=== PATIENT | female | born 1960 | race African-American/Black ===

== ENCOUNTER 2019-11-08 13:12 | Emergency (ER) | payer MEDICARE, MEDICAID ==
[~2019-11-08] VITALS: Ht 124.5 cm; Wt 56.0 kg
[~2019-11-08 13:12] MED LIST: ALL DAY10 MG PO; AMOXICILLIN500 MG PO; ASPIRIN LOW DOS81 M2 PO; BACTRIM DS1 TAB PO; BACTROBAN21 EX; CEPHALEXIN500 M1 PO; CIPRODEX1 ML OT; DICLOFENAC SODI75 MG PO; DOXYCYC MONO100 M1 PO; DOXYCYC MONO100 M2 PO; FLEXERIL5 MG PO; GLIPIZIDE10 MG PO; GLUCOTROL10 MG PO; LISINOPRIL10 MG PO; LOMOTIL2.5 MG PO; LORTAB 5-325 MG1 TAB PO; LORTAB 7.5-3251 TAB PO; LORTAB 7.57.5 MG PO; MEDDOSEPAK PO; METFORMIN1000 MG PO; MOTRIN400 MG PO; NAPROSYN500 MG PO; POLYSPORIN3.5 GM OP; SIMVASTATIN20 MG PO; TESSALON PER100 MG PO; TIZANIDINE HCL2 M1 PO; TIZANIDINE HCL4 M1 PO; TRAMADOL HCL50 MG PO; ULTRAM50 M1 PO; ZITHROMAX250 MG PO; ZYRTEC10 MG PO
[2019-11-08] MEDS ORDERED: GLIPIZIDE5 MG PO (14:59)
[2019-11-08] MEDS ORDERED: PIOGLITAZONE HC30 MG PO (15:00)
[2019-11-08] MEDS ORDERED: ZOCOR20 M1 PO (15:06)
[2019-11-08] MEDS ORDERED: FARXIGA5 MG PO (15:06)
[2019-11-08] MEDS ORDERED: METFORMIN HCL1000 MG PO (15:06)
[2019-11-08] MEDS ORDERED: LISINOPRIL10 M1 PO (15:08)
[2019-11-08] MEDS ORDERED: ADLT ASA LOW81 MG PO (15:08)
[2019-11-08] MEDS ORDERED: ZPAK PO (15:54)
[2019-11-08 16:00] VITALS: BP 150/87
== END 2019-11-08 16:00 | disposition home or self-care (01) ==
LOC: ED 13:12
DX: J06.9 Acute upper respiratory infection, unspecified (principal); E11.9 Type 2 diabetes mellitus without complications; I10 Essential (primary) hypertension; Z79.84 Long term (current) use of oral hypoglycemic drugs

== ENCOUNTER 2020-08-29 14:54 | Emergency (ER) | payer MEDICARE, MEDICAID ==
[~2020-08-29] VITALS: Ht 124.5 cm; Wt 45.0 kg
[~2020-08-29 14:54] MED LIST changes: +ADLT ASA LOW81 MG PO; +FARXIGA5 MG PO; +GLIPIZIDE5 MG PO; +LISINOPRIL10 M1 PO; +METFORMIN HCL1000 MG PO; +PIOGLITAZONE HC30 MG PO; +ZOCOR20 M1 PO; +ZPAK PO
[2020-08-29] MEDS ORDERED: SOLIQUA 100/331 INJ SC (15:53)
[2020-08-29] MEDS ORDERED: PIOGLITAZONE HY15 MG PO (15:54)
[2020-08-29] MEDS ORDERED: TIZANIDINE HCL4 MG PO (15:54)
[2020-08-29] MEDS ORDERED: TRESIBA FL200 UNIT/M SC (15:57)
[2020-08-29 16:20] VITALS: BP 122/77
[2020-08-29] MEDS ORDERED: MOBIC7.5 M1 PO (16:22)
== END 2020-08-29 16:20 | disposition home or self-care (01) ==
LOC: ED 14:54
DX: S80.01XA Contusion of right knee, initial encounter (principal); I10 Essential (primary) hypertension; E11.9 Type 2 diabetes mellitus without complications; X58.XXXA Exposure to other specified factors, initial encounter; Z79.4 Long term (current) use of insulin

== ENCOUNTER 2021-01-14 21:21 | Emergency (ER) | payer MEDICARE, MEDICAID ==
[~2021-01-14] VITALS: Ht 147.3 cm; Wt 48.0 kg
[~2021-01-14 21:21] MED LIST changes: +MOBIC7.5 M1 PO; +PIOGLITAZONE HY15 MG PO; +SOLIQUA 100/331 INJ SC; +TIZANIDINE HCL4 MG PO; +TRESIBA FL200 UNIT/M SC
[2021-01-15 07:26] VITALS: BP 124/60
== END 2021-01-15 07:26 ==
LOC: ED 21:21
PROC: 0RSJXZZ Reposition Right Shoulder Joint, External Approach (ICD-10-PCS; principal; 2021-01-14)
DX: S43.014A Anterior dislocation of right humerus, initial encounter (principal); R20.2 Paresthesia of skin; E11.9 Type 2 diabetes mellitus without complications; I10 Essential (primary) hypertension; W01.0XXA Fall on same level from slipping, tripping and stumbling without subsequent striking against object, initial encounter; Y92.009 Unspecified place in unspecified non-institutional (private) residence as the place of occurrence of the external cause; Z79.4 Long term (current) use of insulin; Z20.822 Contact with and (suspected) exposure to COVID-19

== ENCOUNTER 2021-06-02 17:51 | Observation (INO) | payer MEDICARE, MEDICAID ==
[~2021-06-02] VITALS: Ht 147.3 cm; Wt 51.0 kg
--- NOTE | 2021-06-02 17:51 | NUR ---
PT ARRIVES TO ROOM VIA EMS. BEDSIDE TRIAGE COMPLETED. EMS UNABLE TO TELL US MEDICATIONS AND PATIENT HAS HX OF MENTAL DELAY. AWAITING FAMILY TO ARRIVE
[2021-06-02 18:13] LABS: HEMATOCRIT 39.1 % (37.0-47.0); IMMATURE GRANULOCYTES 0.3 % (0.0-5.0); MEAN CORPUSCULAR HGB 29.6 pG CALC (26.0-32.0); MEAN CORPUSCULAR HGB CONC 31.5 g/dL CAL (32.0-36.0); NEUT# 7.39 thou/uL (2.00-7.15); RED BLOOD COUNT 4.16 mill/uL (4.20-5.60); RED CELL DISTRI WIDTH 13.9 % (11.5-15.5)
[2021-06-02 18:16] LABS: HEMOGLOBIN 12.3 g/dl (12.0-16.0)
[2021-06-02 18:29] LABS: ALBUMIN 4.2 g/dL (3.2-5.0); ALKALINE PHOSPHATASE 92 u/l (38-126); BUN 16 mg/dL (8-23); BUN/CREATININE RATIO 32 (12-20 (CALC)); CHLORIDE 101 mmol/l (95-108); CREATININE 0.5 mg/dL (0.5-1.0); ETHYL ALCOHOL 0 mg/dl (0-30); GFR > 60 ML/MIN (>=60 (CALC)); GFR FOR AFR.AMER. > 60 ML/MIN (>=60 (CALC)); LIPASE 554 u/l (23-300); POTASSIUM 4.2 mmol/l (3.5-5.1); SODIUM 137 mmol/l (137-146); TOTAL PROTEIN 8.1 g/dL (6.3-8.2)
[2021-06-02 18:30] LABS: ANION GAP 17 (6-22 (CALC)); BILIRUBIN, TOTAL 0.3 mg/dL (0.0-1.4); CARBON DIOXIDE 23 mmol/l (22-30); SGOT/AST 43 u/l (9-36)
--- NOTE | 2021-06-02 18:44 | NUR ---
UPON A NURSE RECHECKING PT BG, IT HAS DROPPED FROM 121 TO 50. MD NOTIFIED AND D50% GIVEN IV. ORANGE JUICE WAS GIVEN WELL. CT DELAYED UNTIL SUGARS ARE CONTROLLED. PT AOX4.
--- NOTE | 2021-06-02 18:49 | NUR ---
phoned patient sister hubert dennison at home phone and cell phone left a voice message to return call to discuss medications that were given.
--- NOTE | 2021-06-02 19:00 | NUR ---
care assumed pt eating food tray, tolerating weel, offers no complaints, states that her sister usually doles out her medication but she administers it to herself.
--- NOTE | 2021-06-02 19:28 | NUR ---
Accu check 170 MD aware will continue to monitor frequently to eval trend.
--- NOTE | 2021-06-02 20:15 | NUR ---
pt resting second snack provided per MD request accu check at this time 157, per sister (via phone) she is on her way to [facility]>
--- NOTE | 2021-06-02 20:40 | NUR ---
sister at bedside.
--- NOTE | 2021-06-02 21:21 | NUR ---
SISTER AT BEDSIDE STATES THAT THEY CHANGED HER MEDICATION RECENTLY AND SH HAS BEEN RUNNING LOW IN THE MORNINGS. INSTRUCTED TO MAKE SURE PT IS TAKING A GOOD SNACK PRIOR TO BEDTIME TO HELP CARRY HER THRU THE NIGHT. AND TO KEEP A RUNNING OLOG OD BS'S TO TAKE TO F/U VISIT
--- NOTE | 2021-06-02 21:30 | NUR ---
MD AT BEDSIDE TO DISCUSS FINDINGS AND PLAN OF CARE RELATED TO PLAN OF CARE.
--- NOTE | 2021-06-02 21:36 | NUR ---
SISTER LEFT AT THIS TIME STATES CALL ME WHEN SHE IS READY FOR D/C AND I WILL COME BACK AND GET HER.
--- NOTE | 2021-06-02 22:05 | NUR ---
PT ATE NUTRIO GARAIN BAR, AND SNACK SIZE CANDY PIECE (PER OK) HER SISTER BROUGHT HER A SERVING OF GRAPES AND SHE ATE THOSE WELL, ACCU CHECK CURRENTLY 262. PT STATES FEELING FINE.
--- NOTE | 2021-06-02 23:00 | NUR ---
PT RESTING NO NEW COMPLAINTS OFFERED.
--- NOTE | 2021-06-02 23:10 | NUR ---
SISTER AWARE OF PLANNED ADMISSION.
--- NOTE | 2021-06-02 23:41 | NUR ---
PRINTED SBAR RECEIVED. CALL RECEIVED FROM ED REGARDING PT PLACEMENT. ROOM 272 ASSIGNED AT THIS TIME. ROOM PREPARED TO RECEIVE PT BY AJ HUMPHREY AND MARCEL HUMPHREY.
--- NOTE | 2021-06-02 23:46 | NUR ---
SISTER EN ROUTE WITH HOME MEDICATIONS TO ALLOW FOR PROPER MED REC/
--- NOTE | 2021-06-03 00:43 | NUR ---
REPORT CALLED TO LUCY [facility] ON MED SURG. ROOM 272 AND [id number] ASSIGNED,
--- NOTE | 2021-06-03 00:50 | NUR ---
TELEPHONE REPORT RECEIVED FROM Antonino POLANCO RN IN ED.
--- NOTE | 2021-06-03 01:01 | NUR ---
PT TRANSPORTED TO MED SURG VIA STRETCHER WITH TELE IN PLACE AND ALL BELONGINGS SENT WITH PT, RECORDS BELONGING FORM (200) COMPLETED.
--- NOTE | 2021-06-03 01:03 | NUR ---
AT 0103 PT ARRIVES TO UNIT VIA STRETCHER, ACCOMPANIED BY Jake LAY RN. PT ADMITTED TO ROOM 272. AMBULATORY FROM STRETCHER TO BED. GAIT STEADY AND BALANCED. PT ORIENTED TO ROOM, BED AND CALL PEARCE SYSTEM. CALL PEARCE WITHIN REACH, AGREES TO CALL PRN.
--- NOTE | 2021-06-03 01:05 | NUR ---
POINT OF CARE GLUCOSE 161mg/dl. PT REQUESTS ORANGE JUICE. ORANGE JUICE PROVIDED. PT DENIES FURTHER NEEDS AT THIS TIME. CALL PEARCE WITHIN REACH, AGREES TO CALL PRN.
[2021-06-03 01:20] VITALS: BP 140/60
[2021-06-03] MEDS ORDERED: ASPIRIN81 MG PO (01:45)
[2021-06-03] MEDS ORDERED: DICLOFENAC SODIUM1 % TOP (01:47)
[2021-06-03] MEDS ORDERED: HM IRON65 MG PO (01:49)
[2021-06-03] MEDS ORDERED: METFORMIN HYD1000 MG PO (01:50)
[2021-06-03] MEDS ORDERED: HYDROCO/APAP1 TA9 PO (01:50)
[2021-06-03] MEDS ORDERED: LISINOPRIL10 MG PO (01:50)
--- NOTE | 2021-06-03 01:50 | NUR ---
CALL RECEIVED FROM PT'S SISTER/ CAREGIVER. COMMUNICATION CODE PROVIDED BY SISTER. PLAN OF CARE AND PT'S CONDITION REVIEWED. QUESTIONS ANSWERED.
[2021-06-03] MEDS ORDERED: NOVOLOG MIX SC (01:51)
[2021-06-03] MEDS ORDERED: PIOGLITAZONE HY15 MG PO (01:55)
[2021-06-03] MEDS ORDERED: SIMVASTATIN20 MG PO (01:56)
[2021-06-03] MEDS ORDERED: TIZANIDINE HYDRO4 M1 PO (01:58)
[2021-06-03] MEDS ORDERED: TRESIBA FL200 UNIT/M SC (01:59)
[2021-06-03] MEDS ORDERED: VITAMIN D31000 UNI1 PO (02:01)
[2021-06-03] MEDS ORDERED: NOVOLOG100 UNIT SC (02:02)
[2021-06-03 03:48] VITALS: BP 133/78
--- NOTE | 2021-06-03 03:50 | NUR ---
POINT OF CARE GLUCOSE 46mg/dl. PT ASYMPTOMATIC. GIVEN ORANGE JUICE TO DRINK. ORDER FOR D10% RECEIVED FROM DR. LOPEZ. D10% IV ADMINISTERED, SEE E-MAR.
[2021-06-03 04:24] LABS: URINE BILIRUBIN - DIPSTICK NEGATIVE (NEGATIVE); URINE BLOOD DIPSTICK NEGATIVE (NEGATIVE); URINE COLOR YELLOW; URINE GLUCOSE - DIPSTICK >=1000 mg/dL (NEGATIVE); URINE KETONE NEGATIVE (NEGATIVE); URINE LEUK ESTERASE NEGATIVE (NEGATIVE); URINE PROTEIN - DIPSTICK NEGATIVE (NEG-TRACE); URINE UROBILINOGEN - DIPSTICK 0.2 E.U./dL (0.2)
[2021-06-03 04:25] LABS: URINE NITRITE - DIPSTICK NEGATIVE (Negative)
--- NOTE | 2021-06-03 04:57 | NUR ---
POINT OF CARE GLUCOSE 109mg/dl.
--- NOTE | 2021-06-03 06:32 | NUR ---
POINT OF CARE GLUCOSE 69mg/dl. JUICE AND ALINA CRACKERS WITH PEANUT BUTTER PROVIDED.
--- NOTE | 2021-06-03 06:45 | NUR ---
NURSE NOTIFIED OF PATIENT ACCUCHECK READ LOW ON THE ACCUCHECK METER.
--- NOTE | 2021-06-03 06:45 | NUR ---
POINT OF CARE GLUCOSE CRITICAL LOW. PT ASYMPTOMATIC. D10% 250 ML BOLUS ADMINISTERED.
--- NOTE | 2021-06-03 07:03 | NUR ---
REPORT RECEIVED FROM SANGEETA AYALA. PATIENT IS EATING HER BREAKFAST WITH NO DISTRESS NOTED. PATIENT DENIES NEEDS. SAFETY PRECAUTION REINFORCED AND CALL LIGHT IN REACH.
[2021-06-03 07:18] VITALS: BP 154/81
--- NOTE | 2021-06-03 07:32 | NUR ---
PATIENT ACCU IS 99.
--- NOTE | 2021-06-03 08:10 | NUR ---
PATIENT ACCU IS 173.
[2021-06-03 10:55] VITALS: BP 119/66
--- NOTE | 2021-06-03 11:50 | NUR ---
PATIENT IS EATING HER LUNCH WITH NO DISTRESS NOTED. PATIENT DENIES ANY NEEDS AT THIS TIME. CALL LIGHT IN REACH.
--- NOTE | 2021-06-03 14:49 | NUR ---
Discharge instructions given. Patient verbalizes understanding of same. Discharged in stable condition via Wheelchair to Home with family. All belongings sent with pt.
== END 2021-06-03 14:50 | disposition home or self-care (01) ==
LOC: ED 17:51 → ED-I 22:58 → ED 23:39 → MS2 23:40
PROVIDERS: ADMIT Hospitalist; ATTEND Hospitalist
DX: E11.649 Type 2 diabetes mellitus with hypoglycemia without coma (principal); I10 Essential (primary) hypertension; E78.5 Hyperlipidemia, unspecified; F79 Unspecified intellectual disabilities; Z79.4 Long term (current) use of insulin; Z20.822 Contact with and (suspected) exposure to COVID-19
CPT/HCPCS: G0378

== ENCOUNTER 2021-07-27 02:14 | Emergency (ER) | payer MEDICARE, MEDICAID ==
[~2021-07-27] VITALS: Ht 147.3 cm; Wt 56.3 kg
[~2021-07-27 02:14] MED LIST changes: +ASPIRIN81 MG PO; +DICLOFENAC SODIUM1 % TOP; +HM IRON65 MG PO; +HYDROCO/APAP1 TA9 PO; +METFORMIN HYD1000 MG PO; +NOVOLOG MIX SC; +NOVOLOG100 UNIT SC; +TIZANIDINE HYDRO4 M1 PO; +VITAMIN D31000 UNI1 PO
[2021-07-27 02:56] LABS: HEMATOCRIT 39.3 % (37.0-47.0); IMMATURE GRANULOCYTES 0.2 % (0.0-5.0); MEAN CORPUSCULAR HGB 29.9 pG CALC (26.0-32.0); MEAN CORPUSCULAR HGB CONC 30.5 g/dL CAL (32.0-36.0); NEUT# 6.44 thou/uL (2.00-7.15); RED BLOOD COUNT 4.01 mill/uL (4.20-5.60); RED CELL DISTRI WIDTH 14.8 % (11.5-15.5)
[2021-07-27 03:24] LABS: ALBUMIN 4.4 g/dL (3.2-5.0); ALKALINE PHOSPHATASE 92 u/l (38-126); AMYLASE 202 u/l (30-110); ANION GAP 18 (6-22 (CALC)); BILIRUBIN, TOTAL 0.4 mg/dL (0.0-1.4); BUN 18 mg/dL (8-23); BUN/CREATININE RATIO 24 (12-20 (CALC)); CARBON DIOXIDE 19 mmol/l (22-30); CHLORIDE 105 mmol/l (95-108); CREATININE 0.8 mg/dL (0.5-1.0); GFR > 60 ML/MIN (>=60 (CALC)); GFR FOR AFR.AMER. > 60 ML/MIN (>=60 (CALC)); LIPASE 417 u/l (23-300); POTASSIUM 3.9 mmol/l (3.5-5.1); SGOT/AST 38 u/l (9-36); SODIUM 139 mmol/l (137-146)
[2021-07-27 04:23] VITALS: BP 125/61
== END 2021-07-27 04:40 | disposition home or self-care (01) ==
LOC: ED 02:14
DX: E11.649 Type 2 diabetes mellitus with hypoglycemia without coma (principal); F79 Unspecified intellectual disabilities; Z79.4 Long term (current) use of insulin

== ENCOUNTER 2021-07-29 10:27 | Emergency (ER) | payer MEDICARE, MEDICAID ==
[~2021-07-29] VITALS: Ht 147.3 cm; Wt 56.0 kg
[2021-07-29 11:56] LABS: HEMATOCRIT 34.5 % (37.0-47.0); HEMOGLOBIN 10.5 g/dl (12.0-16.0); IMMATURE GRANULOCYTES 0.2 % (0.0-5.0); MEAN CELL VOLUME 97.7 fL CALC (80.0-100.0); MEAN CORPUSCULAR HGB 29.7 pG CALC (26.0-32.0); MEAN CORPUSCULAR HGB CONC 30.4 g/dL CAL (32.0-36.0); NEUT# 7.72 thou/uL (2.00-7.15); RED BLOOD COUNT 3.53 mill/uL (4.20-5.60); RED CELL DISTRI WIDTH 14.8 % (11.5-15.5)
[2021-07-29 12:14] LABS: ALKALINE PHOSPHATASE 68 u/l (38-126); ANION GAP 11 (6-22 (CALC)); BILIRUBIN, TOTAL 0.3 mg/dL (0.0-1.4); BUN 19 mg/dL (8-23); BUN/CREATININE RATIO 38 (12-20 (CALC)); CARBON DIOXIDE 19 mmol/l (22-30); CHLORIDE 111 mmol/l (95-108); CREATININE 0.5 mg/dL (0.5-1.0); GFR > 60 ML/MIN (>=60 (CALC)); GFR FOR AFR.AMER. > 60 ML/MIN (>=60 (CALC)); POTASSIUM 3.8 mmol/l (3.5-5.1); SGOT/AST 32 u/l (9-36); SODIUM 137 mmol/l (137-146)
[2021-07-29 12:25] LABS: ALBUMIN 2.9 g/dL (3.2-5.0); TOTAL PROTEIN 5.7 g/dL (6.3-8.2)
[2021-07-29 13:17] VITALS: BP 134/65
== END 2021-07-29 13:20 | disposition home or self-care (01) ==
LOC: ED 10:27
DX: E11.649 Type 2 diabetes mellitus with hypoglycemia without coma (principal); Z79.4 Long term (current) use of insulin; Z20.822 Contact with and (suspected) exposure to COVID-19

== ENCOUNTER 2022-12-06 11:19 | Emergency (ER) | payer MEDICARE ==
[2022-12-06] VITALS (7 sets, daily range): BP systolic 120–186; BP diastolic 80–115
[~2022-12-06] VITALS: Ht 147.3 cm; Wt 58.0 kg
[2022-12-06] MEDS ORDERED: ZYRTEC10 MG PO (13:25)
[2022-12-06] MEDS ORDERED: METHOCARBAMOL500 MG PO (13:25)
[2022-12-06] MEDS ORDERED: NAPROXEN DR375 M1 PO (13:25)
== END 2022-12-06 13:51 | disposition home or self-care (01) ==
LOC: ED 11:19
DX: M43.6 Torticollis (principal); J06.9 Acute upper respiratory infection, unspecified; I10 Essential (primary) hypertension; E11.9 Type 2 diabetes mellitus without complications; Z79.4 Long term (current) use of insulin; Z79.84 Long term (current) use of oral hypoglycemic drugs; Z20.822 Contact with and (suspected) exposure to COVID-19; E11.649 Type 2 diabetes mellitus with hypoglycemia without coma; R41.0 Disorientation, unspecified

== ENCOUNTER 2022-12-06 17:39 | Emergency (ER) | payer MEDICARE ==
[2022-12-06] VITALS (13 sets, daily range): BP systolic 141–187; BP diastolic 71–92
[~2022-12-06 17:39] MED LIST changes: +METHOCARBAMOL500 MG PO; +NAPROXEN DR375 M1 PO
[2022-12-06 18:56] LABS: BASO% 0.4 % (0-3); EOS% 0.5 % (0-8); IMMATURE GRANULOCYTES 0.1 % (0.0-5.0); LYMPH% 10.2 % (15-41); MEAN CELL VOLUME 94.7 fL CALC (80.0-100.0); MEAN CORPUSCULAR HGB 30.8 pG CALC (26.0-32.0); MEAN CORPUSCULAR HGB CONC 32.6 g/dL CAL (32.0-36.0); MONO% 4.9 % (2-13); NEUT# 9.66 thou/uL (2.00-7.15); NEUT% 83.9 % (42-76); RED BLOOD COUNT 4.54 mill/uL (4.20-5.60); RED CELL DISTRI WIDTH 13.3 % (11.5-15.5)
[2022-12-06 19:08] LABS: ALBUMIN 4.6 g/dL (3.2-5.0); ALKALINE PHOSPHATASE 175 u/l (38-126); ANION GAP 10 (6-22 (CALC)); BILIRUBIN, TOTAL 0.1 mg/dL (0.0-1.4); BUN 16 mg/dL (8-23); BUN/CREATININE RATIO 17 (12-20 (CALC)); CARBON DIOXIDE 30 mmol/l (22-30); CHLORIDE 105 mmol/l (95-108); CREATININE 0.9 mg/dL (0.5-1.0); GFR FOR AFR.AMER. > 60 ML/MIN (>=60 (CALC)); GFR OTHER RACES > 60 ML/MIN (>=60 (CALC)); POTASSIUM 3.8 mmol/l (3.5-5.1); SGOT/AST 46 u/l (9-36); SODIUM 141 mmol/l (137-146); TOTAL PROTEIN 8.5 g/dL (6.3-8.2)
== END 2022-12-06 21:13 | disposition home or self-care (01) ==
LOC: ED 17:39
PROVIDERS: Nurse Practitioner
DX: E11.649 Type 2 diabetes mellitus with hypoglycemia without coma (principal); I10 Essential (primary) hypertension; Z79.4 Long term (current) use of insulin; Z79.84 Long term (current) use of oral hypoglycemic drugs

== ENCOUNTER 2023-07-16 19:33 | Emergency (ER) | payer MEDICARE, MEDICAID ==
[~2023-07-16] VITALS: Ht 147.3 cm; Wt 58.0 kg
[2023-07-16 21:29] VITALS: BP 142/74
[2023-07-16] MEDS ORDERED: CYCLOBENZAPRINE10 MG PO (23:22)
[2023-07-16] MEDS ORDERED: NAPROXEN500 MG PO (23:22)
[2023-07-17] MEDS ORDERED: AMLODIPINE BESY10 MG PO (07:08)
[2023-07-17] MEDS ORDERED: ROPINIROLE0.5 MG PO (07:09)
== END 2023-07-16 23:46 | disposition home or self-care (01) ==
LOC: ED 19:33
DX: S33.5XXA Sprain of ligaments of lumbar spine, initial encounter (principal); I10 Essential (primary) hypertension; E11.9 Type 2 diabetes mellitus without complications; Z79.4 Long term (current) use of insulin; X58.XXXA Exposure to other specified factors, initial encounter